=== PATIENT | female | born 1960 ===

== ENCOUNTER 2023-03-29 11:30 | Day surgery (SDC) | payer OTHER ==
[~2023-03-29] VITALS: Ht 162.6 cm; Wt 139.3 kg
[2023-03-29] MEDS ORDERED: fentaNYL citrate 0.05 MG/ML VIAL ONE (13:28)
[2023-03-29] MEDS ORDERED: LIDOCAINE 2% 100 MG/5 ML UJET TP ONE (13:28)
[2023-03-29] MEDS: fentaNYL citrate 0.05 MG/ML VIAL IVP ONE (14:01)
[2023-03-29] MEDS: LIDOCAINE 2% 100 MG/5 ML UJET TP ONE (14:06)
== END 2023-03-29 15:33 | disposition home or self-care (01) ==
LOC: MDS 11:30 → MMU 12:00 → MDS 15:33
PROVIDERS: ATTEND Internal Medicine Gastroenterology
DX: Z12.11 Encounter for screening for malignant neoplasm of colon (principal); K63.5 Polyp of colon; K62.1 Rectal polyp; K57.30 Diverticulosis of large intestine without perforation or abscess without bleeding; I10 Essential (primary) hypertension; E78.00 Pure hypercholesterolemia, unspecified; E11.9 Type 2 diabetes mellitus without complications; Z98.51 Tubal ligation status
CPT/HCPCS: 45385; 82948; J3010